=== PATIENT | female | born 1945 | race Caucasian/White ===

== ENCOUNTER 2017-01-27 15:52 | Emergency (ER) | payer MEDICARE ==
[2017-01-27 15:57] VITALS: BP 135/58; TEMP 97.5
[2017-01-27] MEDS ORDERED: methylPREDNISolone SOD SUCCI 125 MG/2 ML VIAL IV STA (16:17)
[2017-01-27] MEDS ORDERED: SODIUM CHLORIDE 0.9% 1,000 ML IV STA (16:17)
[2017-01-27] MEDS ORDERED: IPRATROPIUM-ALBUTEROL 3 ML NEB INHALATION STA (16:17)
[2017-01-27] MEDS ORDERED: TERBUTALINE 1 MG/ML VIAL SQ STA (16:17)
--- NOTE | 2017-01-27 16:23 | ED ---
General Adult HPI - General Chief complaint: Shortness of Breath Stated complaint: SARAH Time Seen by Provider: 01/27/17 16:05 Source: patient, family, RN notes reviewed Mode of arrival: wheelchair Limitations: no limitations - History of Present Illness Initial comments: Chief complaint and history of present illness 71-year-old female with severe COPD. Patient reports she was worse last night. Today up until this morning she had nausea and vomiting. None right now. Denying any pain. The patient is on oxygen 24 7. Chronic cough slightly productive. Denies fever. States she did get her flu shot this year - Related Data Home Medications Medication Instructions Recorded Confirmed Albuterol Inhaler [Ventolin Hfa 1 - 2 puff INHALATION RT-Q6H PRN 09/14/16 Inhaler] Aspirin [Adult Low Dose Aspirin EC] 81 mg PO DAILY 09/14/16 09/23/16 Lisinopril [Zestril] 20 mg PO BID 09/14/16 09/23/16 Omeprazole [PriLOSEC] 20 mg PO AC-BID 09/14/16 09/23/16 diphenhydrAMINE HCL [Benadryl] 25 mg PO BID 09/14/16 09/23/16 glipiZIDE XL [Glucotrol Xl] 2.5 mg PO DAILY 09/14/16 09/23/16 ALPRAZolam [Xanax] 0.25 mg PO DAILY PRN 01/27/17 01/27/17 HYDROcodone/APAP 7.5-325MG [[place] 1 tab PO QID 01/27/17 01/27/17 7.5-325] Levalbuterol HCl [Xopenex] 1.25 mg INHALATION RT-QID 01/27/17 01/27/17 Sertraline [Zoloft] 75 mg PO DAILY 01/27/17 01/27/17 Simvastatin [Zocor] 20 mg PO HS 01/27/17 01/27/17 Tiotropium 18 Mcg/Puff [Spiriva] 1 cap INHALATION RT-DAILY 01/27/17 01/27/17 Allergies Allergy/AdvReac Type Severity Reaction Status Date / Time Sulfa (Sulfonamide Allergy Rash/Hives Verified 01/27/17 15:57 Antibiotics) Penicillins AdvReac Itching Verified 01/27/17 15:57 Review of Systems ROS Statement: Those systems with pertinent positive or pertinent negative responses have been documented in the HPI. Review of systems. No headache or visual acuity changes. She is complaining of appear short of breath. On oxygen 24 hours a day. Severe COPD history, no neck pain no chest pain occasional cough slightly productive afebrile. No complaint of any weakness no neuro deficits complained over noted. All systems are reviewed. Past medical processing significant for COPD, nondistended diabetes mellitus, hypertension, osteoarthritis, surgeries include appendectomy, cholecystectomy, right foot surgery, total hysterectomy, patient has ALLERGIES to sulfa and penicillin. She quit smoking one month ago. Denies alcohol use. Family history cancers multiple types, too many to mention because she has 18 siblings per patient. ROS Other: All systems not noted in ROS Statement are negative. Past Medical History Past Medical History: COPD, Diabetes Mellitus, Hypertension, Osteoarthritis (OA) History of Any Multi-Drug Resistant Organisms: None Reported Past Surgical History: Cholecystectomy, Orthopedic Surgery Additional Past Surgical History / Comment(s): (R) foot surgery Past Psychological History: No Psychological Hx Reported Smoking Status: Former smoker Past Alcohol Use History: None Reported Past Drug Use History: None Reported General Exam - General Exam Comments Initial Comments: General: The patient is awake and alert, mild to moderate respiratory distress due to COPD. Patient quit smoking just one month ago. Slight cough with occasional productive phlegm. Not discolored. Vital signs temp 97.5 pulse 116 respiratory rate 20 pulse ox 85% on 2 L nasal cannula and blood pressure 135/58 Eye: Pupils are equal, round and reactive to light, extra-ocular movements are intact ; there is normal conjunctiva bilaterally. No signs of icterus. Ears, nose, mouth and throat: There are moist mucous membranes and no oral lesions. Neck: The neck is supple, there is no tenderness , no anterior cervical lymphadenopathy, thyroid not enlarged. Cardiovascular: Tachycardic heart rate, 116.. No murmur, rub or gallop is appreciated. Respiratory: Decreased air entry bilaterally. Pulse ox 85% on 2 L. History of COPD. No rales or wheezing heard at this time. Gastrointestinal: Soft, non-distended, non-tender abdomen without masses or organomegaly noted. There is no rebound or guarding present. Nausea vomiting this morning. This morning. Back: There is no tenderness to palpation in the midline. Denies back pain or rashes. Musculoskeletal: Normal ROM, no tenderness, There is no pedal edema. There is no calf tenderness or swelling. Sensation intact. Is not complaining of any peripheral discomfort. Neurological: CN II-XII intact, There are no obvious motor or sensory deficits. Coordination appears grossly intact. Speech is normal. No evidence of any neuro deficits. Skin: Skin is warm and dry and no rashes or lesions are noted. Limitations: no limitations Course Vital Signs 01/27/17 01/27/17 01/27/17 15:56 16:21 16:37 Temperature 97.5 F L Pulse Rate 116 H 114 H Respiratory 20 24 24 Rate Blood Pressure 135/58 O2 Sat by Pulse 85 L 98 Oximetry EKG Findings - EKG Comments: EKG Findings:: EKG was done and reviewed at 1625 showing sinus tachycardia with biatrial enlargement pulmonary disease pattern. Tachycardic. Rate 114 when necessary was 94 QRS 76 QT [address] Rossi Medical Decision Making - Medical Decision Making Medical decision making; patient's white count 16 hemoglobin 13 hematocrit 39. INR 1.2, potassium 4.7, BUN 16 creatinine 0.49 GFR greater than 60. Glucose 128 Chest x-ray is done AP and lateral views and reviewed by radiologist his impression is heart size is normal. The pulmonary vasculature is normal. Lungs are clear. There is hyperinflation compatible with emphysematous change. Impression; 1 no acute pulmonary process. Or 2 COPD. As read by Dr. Andrade The patient became acutely short of breath and then irregular heart rhythm. A code was called and ACL protocol was followed for one hour. The patient was intubated by me and the code was called proximally one hour later at 1812. The fur feeder's office was notified and she releases the body to the more and family. - Lab Data Result diagrams: 01/27/17 16:31 01/27/17 16:31 Lab Results 01/27/17 01/27/17 01/27/17 Range/Units 16:31 16:31 16:31 WBC 15.3 H (3.8-10.6) k/uL RBC 4.34 (3.80-5.40) m/uL Hgb 13.2 (11.4-16.0) gm/dL Hct 39.9 (34.0-46.0) % MCV 91.9 (80.0-100.0) fL MCH 30.4 (25.0-35.0) pg MCHC 33.1 (31.0-37.0) g/dL RDW 13.4 (11.5-15.5) % Plt Count 264 (150-450) k/uL Neutrophils % 89 % Lymphocytes % 4 % Monocytes % 6 % Eosinophils % 0 % Basophils % 0 % Neutrophils # 13.7 H (1.3-7.7) k/uL Lymphocytes # 0.6 L (1.0-4.8) k/uL Monocytes # 0.9 (0-1.0) k/uL Eosinophils # 0.1 (0-0.7) k/uL Basophils # 0.0 (0-0.2) k/uL PT 11.6 (9.0-12.0) sec INR 1.2 (<1.1) APTT 23.7 (22.0-30.0) sec D-Dimer 0.30 (<0.60) mg/L FEU Sodium 136 L (137-145) mmol/L Potassium 4.7 (3.5-5.1) mmol/L Chloride 96 L (98-107) mmol/L Carbon Dioxide 29 (22-30) mmol/L Anion Gap 11 mmol/L BUN 16 (7-17) mg/dL Creatinine 0.49 L (0.52-1.04) mg/dL Est GFR (MDRD) Af Amer >60 (>60 ml/min/1.73 sqM) Est GFR (MDRD) Non-Af >60 (>60 ml/min/1.73 sqM) Glucose 128 H (74-99) mg/dL Calcium 9.7 (8.4-10.2) mg/dL Magnesium 1.7 (1.6-2.3) mg/dL Total Bilirubin 0.7 (0.2-1.3) mg/dL AST 16 (14-36) U/L ALT 29 (9-52) U/L Alkaline Phosphatase 63 (38-126) U/L Total Protein 6.8 (6.3-8.2) g/dL Albumin 4.2 (3.5-5.0) g/dL Disposition Clinical Impression: Cardiopulmonary arrest, Disposition: Time of Disposition: 18:36 Preliminary Cause of : Cardiopulmonary arrest - Out of Hospital Transfer - Req. Specs Out of Hospital Transfer - Requested Specifics: Other Non-Acute (Transferred to [facility] [place])
[2017-01-27 16:25] VITALS: RESP 24
[2017-01-27 16:39] VITALS: PULSE 114
[2017-01-27 16:54] LABS: Basophils % (A) 0 %; CH 29.9; CHCM 32.7; Eosinophils # (A) 0.1 k/uL (0-0.7); Eosinophils % (A) 0 %; HCT 39.9 % (34.0-46.0); HDW 2.19; HGB 13.2 gm/dL (11.4-16.0); Luc # (Auto) 0.11; Luc % (Auto) 1; Lymphocytes # (A) 0.6 k/uL (1.0-4.8); Lymphocytes % (A) 4 %; MCH 30.4 pg (25.0-35.0); MCHC 33.1 g/dL (31.0-37.0); MCV 91.9 fL (80.0-100.0); Mean Platelet Volume 7.5; Monocytes # (A) 0.9 k/uL (0-1.0); Monocytes % (A) 6 %; Neutrophils # (A) 13.7 k/uL (1.3-7.7); Neutrophils % (A) 89 %; RBC 4.34 m/uL (3.80-5.40); RDW 13.4 % (11.5-15.5); WBC 15.3 k/uL (3.8-10.6); WBC (Perox) 16.23
--- NOTE | 2017-01-27 16:57 | XR ---
EXAMINATION TYPE: XR chest 2V DATE OF EXAM: 01/27/2017 4:52 PM COMPARISON: 09/23/2016 INDICATION: COPD, short of breath TECHNIQUE: Single frontal view of the chest is obtained. FINDINGS: The heart size is normal. The pulmonary vasculature is normal. The lungs are clear. There is hyperinflation compatible with emphysematous change. IMPRESSION: 1. No acute pulmonary process. 2. COPD
[2017-01-27 17:03] LABS: ALT 29 U/L (9-52); AST 16 U/L (14-36); Alkaline Phosphatase 63 U/L (38-126); Anion Gap 11 mmol/L; Blood Urea Nitrogen 16 mg/dL (7-17); Calcium 9.7 mg/dL (8.4-10.2); Carbon Dioxide 29 mmol/L (22-30); Chloride 96 mmol/L (98-107); Glucose 128 mg/dL (74-99); Magnesium 1.7 mg/dL (1.6-2.3); Non-African American GFR(MDRD) >60 (>60 ml/min/1.73 sqM); Potassium 4.7 mmol/L (3.5-5.1); Sodium 136 mmol/L (137-145); Total Bilirubin 0.7 mg/dL (0.2-1.3); Total Protein 6.8 g/dL (6.3-8.2)
[2017-01-27 17:08] LABS: INR 1.2 (<1.1); Partial Thromboplastin Time 23.7 sec (22.0-30.0); Prothrombin Time 11.6 sec (9.0-12.0)
[2017-01-27 17:23] LABS: Creatine Kinase 53 U/L (30-135)
[2017-01-27 17:36] LABS: Creatine Kinase MB 2.1 ng/mL (0.0-2.4); Troponin I <0.012 ng/mL (0.000-0.034)
== END 2017-01-27 19:00 | disposition expired ==
LOC: EC 15:52
DX: I46.9 Cardiac arrest, cause unspecified (principal); E11.9 Type 2 diabetes mellitus without complications; I10 Essential (primary) hypertension; M19.90 Unspecified osteoarthritis, unspecified site; J44.9 Chronic obstructive pulmonary disease, unspecified; Z87.891 Personal history of nicotine dependence; Z79.82 Long term (current) use of aspirin; Z79.899 Other long term (current) drug therapy; Z79.84 Long term (current) use of oral hypoglycemic drugs; Z79.891 Long term (current) use of opiate analgesic; Z88.2 Allergy status to sulfonamides; Z88.0 Allergy status to penicillin
CPT/HCPCS: 99285 ×2; 92950 ×2; 96374 ×2; 96361 ×2; 36415; 93005; 85379; 83880; 80053; 82550; 82553; 83735; 84484; 85025; 85610; 85730; 87040; 71020; J2930